=== PATIENT | male | born 1965 | race Caucasian/White ===

== ENCOUNTER 2017-08-18 20:23 | Emergency (ER) | payer MEDICAID ==
[2017-08-18] MEDS: ACETAMINOPHEN 325 MG TAB PO (23:05)
== END 2017-08-19 01:54 | disposition home or self-care (01) ==
LOC: FTE 08-19 01:54
DX: K08.89 Other specified disorders of teeth and supporting structures (principal); H66.92 Otitis media, unspecified, left ear; R51 Headache; E11.9 Type 2 diabetes mellitus without complications; I10 Essential (primary) hypertension
CPT/HCPCS: 70450; 99284-25

== ENCOUNTER 2018-08-17 18:44 | Emergency (ER) | payer MEDICAID ==
[2018-08-17] MEDS: LORAZEPAM 2 MG INJ IV (19:49)
[2018-08-17] MEDS: ASPIRIN 325 MG TAB PO (19:49)
[2018-08-17 19:51] LABS: WHITE BLOOD COUNT 12.1 10^3/ul (4.8-10.8)
[2018-08-17 19:51] LABS: ADD MAN DIFF? NO; BASOPHIL # 0.1 10^3/ul (0.0-0.1); BASOPHILS % 0.5 % (0.0-2.0); EOSINOPHILS # 0.3 10^3/ul (0.0-0.5); EOSINOPHILS % 2.2 % (0.0-7.0); HEMATOCRIT 30.6 % (42.0-52.0); HEMOGLOBIN 10.5 g/dl (14.0-18.0); LYMPHOCYTES # 2.7 10^3/ul (0.8-2.9); LYMPHOCYTES % 22.5 % (15.0-51.0); MEAN CORPUSCULAR HEMOGLOBIN 30.5 pg (29.0-33.0); MEAN CORPUSCULAR HGB CONC 34.3 g/dl (32.0-37.0); MEAN PLATELET VOLUME 10.1 fl (7.4-10.4); MONOCYTE # 1.1 10^3/ul (0.3-0.9); MONOCYTES % 8.8 % (0.0-11.0); NEUTROPHIL # 7.9 10^3/ul (1.6-7.5); NEUTROPHILS % 65.4 % (39.0-77.0); PLATELET COUNT 299 10^3/UL (140-415); RED BLOOD COUNT 3.44 10^6/ul (4.70-6.10); RED CELL DISTRIBUTION WIDTH 13.1 % (11.5-14.5)
[2018-08-17] MEDS: SOD CHLORIDE 0.9% 1,000 ML IV (19:54)
[2018-08-17 20:15] LABS: ALANINE AMINOTRANSFERASE 24 IU/L (13-69); ALBUMIN 4.5 g/dl (3.3-4.9); ALKALINE PHOSPHATASE 110 IU/L (42-121); ANION GAP 14 (5-13); ASPARTATE AMINO TRANSFERASE 26 IU/L (15-46); BILIRUBIN,INDIRECT 0.2 mg/dl (0-1.1); BILIRUBIN,TOTAL 0.2 mg/dl (0.2-1.3); BLOOD UREA NITROGEN 52 mg/dl (7-20); CALCIUM 8.9 mg/dl (8.4-10.2); CARBON DIOXIDE 23 mmol/L (21-31); CHLORIDE 105 mmol/L (97-110); CREATINE KINASE 686 IU/L (23-200); CREATININE 3.31 mg/dl (0.61-1.24); Estimated GFR 20 mL/min (>60); GLUCOSE 175 mg/dl (70-220); INR 0.99; POTASSIUM 4.3 mmol/L (3.5-5.1); PROTIME 13.2 Sec (11.9-14.9); SODIUM 142 mmol/L (135-144); TOTAL PROTEIN 7.7 g/dl (6.1-8.1)
[2018-08-17 20:16] LABS: PARTIAL THROMBOPLASTIN TIME 31.2 Sec (23.0-35.0)
[2018-08-17 20:27] LABS: B-TYPE NATRIURETIC PEPTIDE 212 PG/ML (0-125); CK INDEX 0.3; CK-MB 1.75 ng/ml (0.0-2.4); TROPONIN-I < 0.012 ng/ml (0.000-0.120)
[2018-08-18] MEDS ORDERED: ACETAMINOPHEN 325 MG TAB PO ×2 (01:00)
[2018-08-18] MEDS ORDERED: DOCUSATE SODIUM 100 MG CAP PO (01:00)
[2018-08-18] MEDS ORDERED: BISACODYL (EC) 5 MG TAB PO (01:00)
[2018-08-18] MEDS ORDERED: NACL 0.9% 3 ML SYG IV (01:00)
[2018-08-18] MEDS ORDERED: NITROGLYCERIN (SL) 0.4 MG TAB SL (01:00)
[2018-08-18] MEDS ORDERED: ONDANSETRON 4 MG INJ IV ×2 (01:00)
[2018-08-18] MEDS: SOD CHLORIDE 0.9% 500 ML IV (01:31)
[2018-08-18 03:05] LABS: CREATINE KINASE 534 IU/L (23-200)
[2018-08-18 03:18] LABS: CK INDEX 0.2; CK-MB 1.32 ng/ml (0.0-2.4); TROPONIN-I < 0.012 ng/ml (0.000-0.120)
[2018-08-18 05:43] LABS: ADD MAN DIFF? NO
[2018-08-18] MEDS: SOD CHLORIDE 0.9% 1,000 ML IV (05:47)
[2018-08-18 05:58] LABS: BASOPHIL # 0.1 10^3/ul (0.0-0.1); BASOPHILS % 0.7 % (0.0-2.0); EOSINOPHILS # 0.3 10^3/ul (0.0-0.5); EOSINOPHILS % 3.4 % (0.0-7.0); HEMATOCRIT 29.8 % (42.0-52.0); HEMOGLOBIN 9.9 g/dl (14.0-18.0); LYMPHOCYTES # 2.9 10^3/ul (0.8-2.9); LYMPHOCYTES % 30.6 % (15.0-51.0); MEAN CORPUSCULAR HEMOGLOBIN 29.9 pg (29.0-33.0); MEAN CORPUSCULAR HGB CONC 33.2 g/dl (32.0-37.0); MEAN PLATELET VOLUME 10.1 fl (7.4-10.4); MONOCYTE # 0.9 10^3/ul (0.3-0.9); NEUTROPHIL # 5.3 10^3/ul (1.6-7.5); NEUTROPHILS % 55.9 % (39.0-77.0); PLATELET COUNT 241 10^3/UL (140-415); RED BLOOD COUNT 3.31 10^6/ul (4.70-6.10); RED CELL DISTRIBUTION WIDTH 13.1 % (11.5-14.5)
[2018-08-18 05:58] LABS: WHITE BLOOD COUNT 9.4 10^3/ul (4.8-10.8)
[2018-08-18 06:32] LABS: ALANINE AMINOTRANSFERASE 25 IU/L (13-69); ALBUMIN 3.8 g/dl (3.3-4.9); ALKALINE PHOSPHATASE 95 IU/L (42-121); ANION GAP 10 (5-13); ASPARTATE AMINO TRANSFERASE 22 IU/L (15-46); BILIRUBIN,INDIRECT 0.4 mg/dl (0-1.1); BILIRUBIN,TOTAL 0.4 mg/dl (0.2-1.3); BLOOD UREA NITROGEN 44 mg/dl (7-20); CALCIUM 8.5 mg/dl (8.4-10.2); CARBON DIOXIDE 24 mmol/L (21-31); CHLORIDE 109 mmol/L (97-110); CHOL/HDL RATIO 3.7 RATIO; CHOLESTEROL 124 mg/dl (100-200); Estimated GFR 23 mL/min (>60); GLUCOSE 107 mg/dl (70-220); HDL CHOLESTEROL 33 mg/dl (28-71); LDL CHOLESTEROL,CALCULATED 75 mg/dl; MAGNESIUM 1.9 mg/dl (1.7-2.5); PHOSPHORUS 4.5 mg/dl (2.5-4.9); POTASSIUM 4.3 mmol/L (3.5-5.1); SODIUM 143 mmol/L (135-144); TOTAL PROTEIN 6.5 g/dl (6.1-8.1); TRIGLYCERIDES 78 mg/dl (0-149)
[2018-08-18 06:37] LABS: HEMOGLOBIN A1C 6.8 % (0-5.9)
[2018-08-18 07:40] LABS: CREATINE KINASE 517 IU/L (23-200)
[2018-08-18 07:52] LABS: CK INDEX 0.3; TROPONIN-I < 0.012 ng/ml (0.000-0.120)
[2018-08-18 08:16] LABS: ADD UMIC NO; UR ASCORBIC ACID NEGATIVE (NEGATIVE); UR BILIRUBIN (Dip) NEGATIVE (NEGATIVE); UR BLOOD (Dip) NEGATIVE (NEGATIVE); UR CLARITY CLEAR (CLEAR); UR COLOR STRAW (YELLOW); UR GLUCOSE (Dip) NEGATIVE (NEGATIVE); UR KETONES (Dip) NEGATIVE (NEGATIVE); UR LEUKOCYTE ESTERASE (Dip) NEGATIVE Leu/ul (NEGATIVE); UR NITRITE (Dip) NEGATIVE (NEGATIVE); UR SPECIFIC GRAVITY (Dip) 1.009 (1.003-1.030); UR TOTAL PROTEIN (Dip) NEGATIVE (NEGATIVE); UR UROBILINOGEN (Dip) NEGATIVE (NEGATIVE)
[2018-08-18] MEDS ORDERED: SOD CHLORIDE 0.9% 1,000 ML IV (10:00)
[2018-08-18] MEDS: METOPROLOL 50 MG TAB PO (10:30)
[2018-08-18] MEDS: AMLODIPINE 10 MG TAB PO (10:30)
[2018-08-18 11:18] LABS: SODIUM,URINE RANDOM 124 mmol/L (30-90)
[2018-08-18 11:25] LABS: CREATININE,URINE RANDOM 57.15 mg/dl (20-370)
[2018-08-18] MEDS ORDERED: ATORVASTATIN 10 MG TAB PO (21:00)
[2018-08-21 16:16] LABS: CREATININE, RANDOM URINE 56 mg/dL (20-320); MICROALBUMIN 4.9 mg/dL; MICROALBUMIN/CREATININE RATIO 88 (<30)
== END 2018-08-18 12:15 | disposition left against medical advice (07) ==
LOC: E/R 18:44
DX: N17.9 Acute kidney failure, unspecified (principal); F43.0 Acute stress reaction; I10 Essential (primary) hypertension; R07.9 Chest pain, unspecified; E11.9 Type 2 diabetes mellitus without complications; Z79.84 Long term (current) use of oral hypoglycemic drugs
CPT/HCPCS: 36415; 71045; 76775; 80053; 80061; 81003; 82043; 82306; 82550; 82553; 82570; 83036; 83735; 83880; 84100; 84300; 84443; 84484; 84560; 85025; 85610; 85730; 89190; 93306; 96374; 99285-25

== ENCOUNTER 2018-10-08 15:12 | Emergency (ER) | payer MEDICAID ==
[2018-10-08] MEDS: ACETAMINOPHEN 325 MG TAB PO (16:14)
== END 2018-10-08 17:21 | disposition home or self-care (01) ==
LOC: FTE 15:12
DX: R07.81 Pleurodynia (principal); I10 Essential (primary) hypertension; E11.9 Type 2 diabetes mellitus without complications; Z79.84 Long term (current) use of oral hypoglycemic drugs
CPT/HCPCS: 71250; 99284-25